=== PATIENT | male | born 1980 | race African-American/Black ===

== ENCOUNTER 2021-04-11 23:06 | Emergency (ER) | payer MEDICAID ==
[~2021-04-11] VITALS: Ht 172.7 cm; Wt 80.0 kg
[2021-04-11] MEDS ORDERED: ALBUTEROL (0.083%) 2.5MG/3ML NEB HHN STA (23:29)
[2021-04-11] MEDS ORDERED: FAMOTIDINE 20MG TABLET PO ONE (23:30)
[2021-04-12] VITALS: BP 128/81
[2021-04-12 00:13] LABS: BASOPHILS % 0.8 % (0.0-2.0); EOSINOPHILS % 3.8 % (0.0-5.0); HEMATOCRIT. 40.7 % (42.0-52.0); HEMOGLOBIN. 13.9 g/dL (14.0-18.0); LYMPHOCYTES % 25.8 % (20.0-50.0); MEAN CORPUSCULAR HEMOGLOBIN 31.1 pg (28.0-32.0); MEAN CORPUSCULAR VOLUME 91.2 fL (80.0-94.0); MEAN PLATELET VOLUME 7.7 fl (7.4-10.4); MONOCYTES % 8.8 % (2.0-8.0); NEUTROPHILS % 60.8 % (40.0-76.0); PLATELET 332 x1000/uL (130-400); RED BLOOD CELL COUNT 4.46 mill/uL (4.7-6.1)
[2021-04-12 00:16] LABS: CHLORIDE 108 mEq/L (98-107)
[2021-04-12 01:18] LABS: ETHANOL BLOOD 72 mg/dL
[2021-04-12 02:39] LABS: INR 0.9; PARTIAL THROMBOPLASTIN TIME 30.9 sec (23.4-31.0); PROTHROMBIN TIME 9.8 sec (9.6-11.0)
== END 2021-04-12 02:05 | disposition home or self-care (01) ==
LOC: ER 23:06
DX: F10.129 Alcohol abuse with intoxication, unspecified (principal); B35.3 Tinea pedis; J45.901 Unspecified asthma with (acute) exacerbation; E11.9 Type 2 diabetes mellitus without complications; F17.200 Nicotine dependence, unspecified, uncomplicated; F12.10 Cannabis abuse, uncomplicated; Z88.2 Allergy status to sulfonamides; Y90.3 Blood alcohol level of 60-79 mg/100 ml
CPT/HCPCS: 36415; 71045; 80053; 80320; 85025; 85610; 85730; 93005; 94640; 99285; Z7610; G0480

== ENCOUNTER 2021-04-19 17:43 | Emergency (ER) | payer MEDICAID ==
[~2021-04-19] VITALS: Ht 175.3 cm; Wt 68.0 kg
[2021-04-19 17:49] VITALS: BP 124/60
== END 2021-04-19 18:51 | disposition left against medical advice (07) ==
LOC: ER 17:43
DX: Z53.21 Procedure and treatment not carried out due to patient leaving prior to being seen by health care provider (principal)
CPT/HCPCS: 99283